=== PATIENT | female | born 1975 | race Caucasian/White ===

== ENCOUNTER 2018-08-16 15:09 | Emergency (ER) | END 2018-08-16 19:16 | disposition home or self-care (01) ==

== ENCOUNTER 2018-12-22 20:43 | Emergency (ER) | payer OTHER ==
[~2018-12-22] VITALS: Ht 152.4 cm; Wt 56.3 kg
[~2018-12-22 20:43] MED LIST: HYDR-4011 PO; IBUP-1542 PO; PREN-39 PO
[2018-12-22 20:53] VITALS: Ht 152.4 cm; Wt 56.3 kg
[2018-12-22] MEDS ORDERED: DIPHENHYDRAMINE 50 MG INJ IV STA (23:23)
[2018-12-22] MEDS ORDERED: SOD CHLORIDE 0.9% 1,000 ML IV STA (23:23)
[2018-12-22] MEDS ORDERED: METOCLOPRAMIDE 10 MG INJ IV STA (23:23)
[2018-12-22] MEDS ORDERED: KETOROLAC 30 MG INJ IV STA (23:23)
--- NOTE | 2018-12-22 23:45 | ERD ---
ER Documentation Chief Complaint Chief Complaint c/o RT sided FRANCOIS x3 days. +nausea HPI 43-year-old female presents with complaint of headache for the past 3 days. States the headache is bilateral and her temporal area and throbbing. Patient states she has a history of migraines. Has tried ibuprofen but has not helped. States the headache came on gradually. Its that he is also been nauseous. Light makes the headache worse. Denies sudden onset, worse headache of life, fever, neck stiffness, rash, headache getting worse with change in position, headache initiated by exertion, FRANCOIS worse in the morning, FRANCOIS waking up patient at night, new neurological deficits, numbness, weakness, vision problems, tenderness to palpation over temporal area, history of trauma, or possibility of CO2 poisoning. Denies medical problems. Denies allergies.. ROS All systems reviewed and are negative except as per history of present illness. Medications Home Meds Active Scripts Nmmygjlonv-Nmaytravjolyw-Tpamapvu* (Fioricet*) 50-300-40 Mg Capsule, 1 CAP PO Q6 PRN for FRANCOIS, #30 CAP Prov:JENNIFER LUO 12/22/18 Hydrocodone/Acetaminophen ([place] 5-325 Tablet) 1 Each Tablet, 1 TAB PO Q6H PRN for PAIN, #20 TAB Prov:ARMIDA HENDRICKS PA-C 08/16/18 Ibuprofen* (Motrin*) 600 Mg Tab, 600 MG PO Q6, #30 TAB Prov:ARMIDA HENDRICKS PA-C 08/16/18 Reported Medications Vits W-Ca,Fe,Fa(<1MG) ( Vitamins) 1 Tab Tablet, 1 TAB PO DAILY for 7 Days 10/01/14 Allergies Allergies: Coded Allergies: No Known Allergy (Unverified , 12/22/18) PMhx/Soc History of Surgery: Yes () Anesthesia Reaction: No Hx Neurological Disorder: No Hx Respiratory Disorders: No Hx Cardiac Disorders: No Hx Psychiatric Problems: No Hx Miscellaneous Medical Probl: No Hx Alcohol Use: No Hx Substance Use: No Hx Tobacco Use: No Smoking Status: Never smoker FmHx Family History: No diabetes, No coronary disease, No other Physical Exam Vitals Vital Signs Date Temp Pulse Resp B/P (MAP) Pulse Ox O2 O2 Flow FiO2 Time Delivery Rate 12/23/18 97.9 85 18 123/75 99 Room Air 01:14 (91) 12/22/18 97.4 79 16 143/90 98 20:53 (107) Physical Exam Const: No acute distress Head: Atraumatic Eyes: Normal Conjunctiva ENT: Normal External Ears, Nose and Mouth. Neck: Full range of motion. No meningismus. Resp: Clear to auscultation bilaterally Cardio: Regular rate and rhythm, no murmurs Abd: Soft, non tender, non distended. Normal bowel sounds Skin: No petechiae or rashes Back: No midline or flank tenderness Ext: No cyanosis, or edema Neur: Awake and alert Psych: Normal Mood and Affect Neuro: M/S: Alert and oriented Face: EOMI, face and pharynx with normal sensation and function Motor: Normal strength throughout Sensation: Normal sensation throughout Speech: Normal Cerebel: Normal coordination Normal gait Normal finger to nose DTR: 2+ and symmetric upper/lower extremities Results 24 hrs Laboratory Tests Test 12/22/18 23:40 POC Beta HCG, Qualitative NEGATIVE Current Medications Medications Dose Sig/Mojgan Start Time Status Last (Trade) Ordered Route PRN Stop Time Admin Dose Reason Admin Sodium 1,000 ml @ Q1H STAT 12/22/18 DC 12/22/18 Chloride 1,000 mls/hr IV 23:23 12/23/18 23:49 00:22 10 mg ONCE STAT 12/22/18 DC 12/22/18 Metoclopramid IV 23:23 12/22/18 23:48 e HCl 23:25 (Reglan) Ketorolac 30 mg ONCE STAT 12/22/18 DC 12/22/18 Tromethamine IV 23:23 12/22/18 23:48 (Toradol) 23:25 25 mg ONCE STAT 12/22/18 DC 12/22/18 Diphenhydrami IV 23:23 12/22/18 23:48 ne HCl 23:25 (Benadryl) Procedures/MDM Patient given IV fluids as well as IV metoclopramide and Benadryl as well as Toradol. After finishing treatment patient's headache was resolved. Patient advised that migraines need to be treated on outpatient basis with her primary care physician and possibly referral to her neurologist was warranted. I have low suspicion for intracranial hemorrhage, elevated intracranial pressure, i ntracranial mass, aneurysm, meningitis, malignant hypertension, giant cell arteritis, carotid dissection, intracranial abscess, cerebral venous thrombosis, CO2 poisoning, or other emergent causes of headache based on patients history and exam. Patient discharged with strict ER precautions. Patient advised to follow up with PMD. All questions answered at discharge. Departure Diagnosis: Primary Impression: Migraine Migraine type: unspecified Status migrainosus presence: without status migrainosus Intractability: not intractable Qualified Codes: G43.909 - Migraine, unspecified, not intractable, without status migrainosus Condition: Stable JENNIFER LUO Dec 22, 2018 23:45
[2018-12-22] MEDS ORDERED: BUTA1CAP38 PO (23:47)
[2018-12-23 01:14] VITALS: BP 123/75; PULSE 85; RESP 18
== END 2018-12-23 01:17 | disposition home or self-care (01) ==
LOC: FTE 20:43
DX: G43.909 Migraine, unspecified, not intractable, without status migrainosus (principal)
CPT/HCPCS: 81025; 96361; 96374; 96375; J1200; J1885; J2765; J7030; Z7502